=== PATIENT | male | born 1945 | race Caucasian/White ===

== ENCOUNTER 2017-07-08 13:20 | Inpatient (IN) ==
[2017-07-08] MEDS ORDERED: NON-FORMULARY MEDICATION 1 EACH EACH (Insulin Glargine [Lantus] 40 UNIT) SQ SCH (21:15)
[2017-07-08] MEDS ORDERED: Insulin DETEMIR 100 UNIT/ML per UNIT SQ ONE (21:45)
[2017-07-08] MEDS: *HR* HYDROcodone/Acet 5/325 mg TABLET PO PRN (22:26)
[2017-07-08] MEDS: Insulin LISPRO 300 UNITS/3 ML VIAL SQ SCH ×2 (22:30)
[2017-07-09 05:22] LABS: Basophils % 0.3 %; Eosinophils # 0.2 K/mcL (0.0-0.6); Eosinophils % 1.4 %; Hematocrit 34.5 % (37.5-50.1); Hemoglobin 11.9 g/dL (12.9-16.9); Immature Granulocytes % 0.5 % (0-4); Lymphocytes # 2.4 K/mcL (0.6-4.6); Lymphocytes % 20.9 %; Mean Corpuscular HGB Conc 34.5 g/dL (31.6-35.5); Mean Corpuscular Hemoglobin 29.7 pg (28.0-33.3); Mean Platelet Volume 10.2 fL (9.4-12.4); Monocytes # 1.1 K/mcL (0.0-1.3); Monocytes % 9.3 %; Platelet Count 292 K/mcL (140-400); Red Blood Count 4.01 M/mcL (4.19-5.50); Red Cell Distribution Width 13.1 % (11.5-14.5); Segmented Neutrophils % 67.6 %
[2017-07-09 05:33] LABS: INR 1.1; Prothrombin Time 11.4 Seconds (9.4-12.1)
[2017-07-09 05:41] LABS: Neutrophils # 7.8 K/mcL (1.6-8.9)
--- NOTE | 2017-07-09 07:43 | Internal Med History&Physical ---
Date of Encounter: 07/09/17 Time of Encounter: 07:40 Assessment and Plan (1) S/P BKA (below knee amputation) Current visit: Yes Status: Acute s/p BKA left side , Pain free at the present time On percocet as needed. adjust meds as needed . wound care and rehab . Qualifiers: Laterality: left Qualified Code(s): Z89.512 - Acquired absence of left leg below knee (2) Postoperative urinary retention Current visit: No Status: Chronic remove catheter , and trail it again . Most likely due to Narcotics side effects will follow add flomax Prostate is not enlarged noted fresh blood most likey due to ahrd stool will followup . add Colace (3) PAD (peripheral artery disease) Current visit: No Status: Chronic PVD due to [facility] DM , carotid pulse on left side decrease as compared to light side similarly decreased femoral on the left side . Will get carotid Doppler for assessment Continue present medication He is antiplatlets. (4) Diabetes Current visit: No Status: Chronic on insulin and oral medication Blood sugars AC and HS and adjust doses as needed HBA1c ordered . Conitnue to monitor Pt is DNR Qualifiers: Diabetes mellitus type: type 2 Diabetes mellitus complication status: with circulatory complication Diabetes mellitus complication detail: with peripheral angiopathy with gangrene Diabetes mellitus [facility] insulin use: with [facility] use Qualified Code(s): E11.52 - Type 2 diabetes mellitus with diabetic peripheral angiopathy with gangrene; Z79.4 - [facility] (current) use of insulin Internal Medicine - H&P: HPI Chief complaint: s/p amputation left BKA Admitted From: Hospital to Hospital Transfer History of present illness: Mr. Paz is a 72 year old male with significant hx of PVD , HTN DM developed ulcer foot on the right side which led to amputation of his left BKA . Surgery went well and he is here for rehab . At the present time he feels fine denies any complains of headache nausea dizziness weakness ,chest pain OB ,palpitation GI complains of pain . He developed urinary retention during this hospitalization . Attempt to remove his catheter failed and has indwelling at the present time Overall he feels fine Past Med Surg Social Fam HX - Past Medical History Medical history: diabetes, hypertension, peripheral artery disease Psychiatric history: no psych history - Past Surgical History Surgical History: cataract (right BKA ) - Social History Smoking Status: Never smoker Smokeless Tobacco Status: Yes Alcohol use: none Drug use: none Internal Medicine - H&P: Meds Aspirin [Lo-Dose Aspirin EC] 81 mg PO DAILY 07/03/17 [History] Insulin ASPART [Novolog] 10 unit SQ BID 07/03/17 [History] Insulin Glargine [Lantus] 40 unit SQ BID 07/03/17 [History] Lisinopril-HCTZ 20-12.5 [Prinzide 20-12.5] 1 each PO DAILY 07/03/17 [History] Loratadine [Allergy Relief] 10 mg PO DAILY 07/03/17 [History] Metoprolol Tartrate [Lopressor] 50 mg PO BID 07/03/17 [History] Pentoxifylline 400 mg PO BID 07/03/17 [History] Sitagliptin Phos/Metformin HCl [Janumet Xr 100-1,000 mg Tablet] 1 each PO DAILY 07/06/17 [History] HYDROcodone/Acet 5/325 mg [[place] 5-325 mg] 1 tab PO Q6HR PRN #20 tab 07/08/17 [ Rx] 3 Allergy/AdvReac Type Severity Reaction Status Date / Time amlodipine [From [facility]] AdvReac Nausea Verified 07/06/17 12:03 metformin AdvReac Nausea Verified 07/06/17 12:03 All Systems PM: A 10-system review of systems was performed and is negative for pertinent findings except as documented above in the HPI. - Constitutional Constitutional: no anorexia, no chills, no excessive sweating, no fatigue, no falls, no lethargy, no malaise, no weakness, no weight gain - EENT Eyes: no change in vision, no discharge, no loss of peripheral vision, no loss of vision, no photophobia Ears: no ear discharge, no ear pain Nose, mouth and throat: no dental pain, no dry mouth, no dysphagia, no mouth lesions, no mouth pain, no nasal discharge, no sinus pain, no sinus pressure - Cardiovascular Cardiovascular ROS IM: no chest pain, no claudication, no edema, no irregular heart rhythm, no lightheadedness, no orthopnea, no palpitations - Respiratory Respiratory: no cough, no dyspnea, no hemoptysis, no dyspnea on exertion, no pain on inspiration, no chest congestion, no excessive phlegm production, no change in phlegm color, no pain with cough - Gastrointestinal Gastrointestinal: no belching, no bloating, no constipation, no cramping, no diarrhea, no dyspepsia, no dysphagia, no hematemesis, no hematochezia - Genitourinary Genitourinary ROS male: difficulty urinating, nocturia, urinary frequency, urinary hesitancy, urinary urgency, no dysuria, no flank pain, no genital lesions, no genital pain, no penile discharge, no scrotal swelling - Musculoskeletal Musculoskeletal ROS IM: no back pain, no joint swelling, no limited range of motion, no muscle cramps - Integumentary Integumentary IM: no erythema, no rash, no skin ulcer, no jaundice - Neurological Neurological ROS: no abnormal hearing, no abnormal movements, no abnormal speech , no burning sensations, no confusion, no convulsions, no dizziness, no loss of vision, no memory loss, no restless legs, no tingling - Endocrine Endocrine IM: no cold intolerance, no deeping of the voice, no excessive sweating - Constitutional Vitals: Temp Pulse Resp BP Pulse Ox 98.1 F 51 14 137/67 94 07/09/17 07:00 07/09/17 07:00 07/09/17 07:00 07/09/17 07:00 07/09/17 07:00 General appearance: Present: A&O X 3, pleasant, no acute distress, answers questions appropriately. Absent: mild distress, obese - Head Head exam: Present: normal inspection - Eye Eye exam: Present: EOMI, normal appearance, PERRL. Absent: conjunctival injection, periorbital swelling, periorbital tenderness, scleral icterus, conjuntiva pink - ENT ENT exam: Present: normal oropharynx - Neck Neck exam general surgery: Present: full ROM, supple Additional comments: decrease carotid pulses both sides no bruits appreciated - Respiratory Respiratory exam: Present: CTAB. Absent: chest wall tenderness, decreased breath sounds, rhonchi, stridor, wheezes, tachypnea - Cardiovascular Cardiovascular exam: Present: RRR. Absent: gallop, irregular rhythm, JVD, systolic murmur, tachycardia - GI/Abdominal GI/Abdominal exam: Present: normal bowel sounds, soft. Absent: distended, guarding, mass, pulsatile mass, tenderness, no peritoneal signs - Rectal Rectal exam: Present: bloody stool, normal rectal tone. Absent: mass, prostate enlargement, prostate tenderness, tenderness Additional comments: fresh blood nted around anus , he had hard stool had been constipated , No hemorrhoids, prostate is non tender non enlarged . no mass felt - Extremities Exam Extremities exam: Present: full ROM. Absent: joint swelling Additional comments: BKA both sides ,pulses decreased on right side left side more then right side no bruits appreciated - Back Exam Back exam: Present: normal inspection. Absent: CVA tenderness (R), muscle spasm , rash noted, tenderness - Neurological Exam Neurological exam: Present: alert, CN II-XII intact, oriented X3, no focal deficits. Absent: facial droop, speech deficit - Psychiatric Psychiatric exam: Present: normal affect, normal mood - Skin Skin exam: Present: normal color. Absent: petechiae, rash, warm Internal Med - H&P Results - Labs CBC & Chem 7: 07/09/17 05:15 Labs: Short CBC 07/09/17 Range/Units 05:15 WBC 11.6 H (4.3-11.1) K/mcL Hgb 11.9 L (12.9-16.9) g/dL Hct 34.5 L (37.5-50.1) % Plt Count 292 (140-400) K/mcL Neutrophils # 7.8 (1.6-8.9) K/mcL
[2017-07-09] MEDS: Loratadine 10 MG TABLET PO SCH (08:21)
[2017-07-09] MEDS: Lisinopril-HCTZ 20-12.5mg TABLET PO SCH (08:21)
[2017-07-09] MEDS: Aspirin Enteric Coated 81 MG Tablet PO SCH (08:21)
[2017-07-09] MEDS: Insulin DETEMIR 100 UNIT/ML per UNIT SQ SCH ×2 (08:22→20:45)
[2017-07-09] MEDS: Insulin LISPRO 300 UNITS/3 ML VIAL SQ SCH ×6 (08:23→20:42)
[2017-07-09] MEDS: JANUMET PO SCH (08:24)
[2017-07-09] MEDS: *HR* HYDROcodone/Acet 5/325 mg TABLET PO PRN ×2 (08:28→20:14)
[2017-07-09 09:54] LABS: BUN/Creatinine Ratio 21 (6-26); Blood Urea Nitrogen 27 mg/dL (8-26); Calcium 9.5 mg/dL (8.6-10.8); Carbon Dioxide 30 mEq/L (19-29); Chloride 99 mEq/L (98-109); Glucose 139 mg/dL (70-99); Osmolality,Calculated 293 (280-300); Potassium 4.6 mEq/L (3.5-4.5); Sodium 138 mEq/L (136-145); eGFR For African Americans > 60 (> 60); eGFR For Non-African Americans 55 (> 60)
[2017-07-09 12:38] LABS: Hemoglobin A1C 8.3 %
[2017-07-10] MEDS: Loratadine 10 MG TABLET PO SCH (08:36)
[2017-07-10] MEDS: Aspirin Enteric Coated 81 MG Tablet PO SCH (08:36)
[2017-07-10] MEDS: Lisinopril-HCTZ 20-12.5mg TABLET PO SCH (08:36)
[2017-07-10] MEDS: JANUMET PO SCH (08:37)
[2017-07-10] MEDS: Insulin LISPRO 300 UNITS/3 ML VIAL SQ SCH ×6 (08:37→22:09)
[2017-07-10] MEDS: *HR* HYDROcodone/Acet 5/325 mg TABLET PO PRN ×2 (08:37→21:51)
[2017-07-10] MEDS: Insulin DETEMIR 100 UNIT/ML X5UNITS SQ SCH ×2 (08:43→22:10)
--- NOTE | 2017-07-10 11:50 | Internal Med Progress Note ---
Date of Encounter: 07/10/17 Time of Encounter: 11:48 - Assessment and plan (1) S/P BKA (below knee amputation) Current Visit: Yes Status: Acute Assessment and plan: stable no phantom pain incision stable Qualifiers: Laterality: left Qualified Code(s): Z89.512 - Acquired absence of left leg below knee (2) Postoperative urinary retention Current Visit: Yes Status: Acute Assessment and plan: seems it has improved today continue present medication . Creatinine slightly high will followup most likely post obstructive (3) PAD (peripheral artery disease) Current Visit: No Status: Chronic (4) Diabetes Current Visit: No Status: Chronic Assessment and plan: getting better continue present treatment Qualifiers: Diabetes mellitus type: type 2 Diabetes mellitus complication status: with circulatory complication Diabetes mellitus complication detail: with peripheral angiopathy with gangrene Diabetes mellitus long term acute care registered nurse insulin use: with senior living use Qualified Code(s): E11.52 - Type 2 diabetes mellitus with diabetic peripheral angiopathy with gangrene; 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 no side effects to meds - Constitutional Vitals: Temp Pulse Resp BP Pulse Ox 97.9 F 54 16 155/74 95 07/10/17 10:39 07/10/17 10:39 07/10/17 10:39 07/10/17 10:39 07/10/17 10:39 General appearance: Present: A&O X 3, pleasant, no acute distress, answers questions appropriately. Absent: mild distress, obese - Head Head exam: Present: atraumatic - Eye Eye exam: Present: EOMI, PERRL Pupils: Present: PERRL - ENT ENT exam: Present: mucous membranes moist - Neck Neck exam general surgery: Present: full ROM, supple - Respiratory Respiratory exam: Present: CTAB. Absent: decreased breath sounds, respiratory distress, stridor, wheezes, tachypnea - Cardiovascular Cardiovascular exam: Present: RRR. Absent: irregular rhythm, JVD Additional comments: no mummers - GI/Abdominal GI/Abdominal exam: Present: normal bowel sounds, soft. Absent: diminished bowel sounds, distended, guarding, rebound, rigid - Incison Incision: Present: clean and dry - Neurological Exam Neurological exam: Present: alert, CN II-XII intact, oriented X3, reflexes normal, no focal deficits. Absent: facial droop, speech deficit Internal Medicine: Result - Labs CBC & Chem 7: 07/09/17 05:15 07/09/17 08:18 - ABG Interpretation ABG results: PT/INR, D-dimer PT 11.4 Seconds (9.4-12.1) 07/09/17 05:15 Consult Discharge Plan - Plan Referrals: Crissy John CNP [Primary Care Provider] - Arsh Reynaga MD [Partnered Physician] - 08/19/17 9:45 am
--- NOTE | 2017-07-11 05:58 | Internal Med Progress Note ---
Date of Encounter: 07/11/17 Time of Encounter: 05:56 - Assessment and plan (1) S/P BKA (below knee amputation) Current Visit: Yes Status: Acute Assessment and plan: stable and getting rehab no new complains Qualifiers: Laterality: left Qualified Code(s): Z89.512 - Acquired absence of left leg below knee (2) Postoperative urinary retention Current Visit: Yes Status: Acute Assessment and plan: improved a lot and almost back to his normal (3) PAD (peripheral artery disease) Current Visit: No Status: Chronic Assessment and plan: No new change . carotid Doppler shows Bilateral less then 80 percent blockage see reprot for detailed report .Aggressive a management of risk factors . 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 Absent: mild distress, obese - Head Head exam: Present: atraumatic - Eye Eye exam: Present: EOMI, PERRL Pupils: Present: PERRL - Neck Neck exam general surgery: Present: supple. Absent: tenderness, nuchal rigidity - Respiratory Respiratory exam: Present: CTAB. Absent: chest wall tenderness, decreased breath sounds, respiratory distress, rhonchi, wheezes - Cardiovascular Cardiovascular exam: Present: RRR. Absent: irregular rhythm, JVD, systolic murmur - GI/Abdominal GI/Abdominal exam: Present: normal bowel sounds, soft. Absent: distended, guarding, rebound - Incison Incision: Present: clean and dry Internal Medicine: Result - Labs CBC & Chem 7: 07/09/17 05:15 07/09/17 08:18 - ABG Interpretation ABG results: PT/INR, D-dimer PT 11.4 Seconds (9.4-12.1) 07/09/17 05:15 Consult Discharge Plan - Plan Referrals: Crissy John CNP [Primary Care Provider] - Arsh Reynaga MD [Partnered Physician] - 08/19/17 9:45 am
[2017-07-11 06:03] LABS: BUN/Creatinine Ratio 26 (6-26); Blood Urea Nitrogen 33 mg/dL (8-26); Calcium 9.7 mg/dL (8.6-10.8); Carbon Dioxide 29 mEq/L (19-29); Chloride 101 mEq/L (98-109); Glucose 189 mg/dL (70-99); Osmolality,Calculated 298 (280-300); Potassium 4.6 mEq/L (3.5-4.5); Sodium 138 mEq/L (136-145); eGFR For African Americans > 60 (> 60); eGFR For Non-African Americans 55 (> 60)
[2017-07-11] MEDS: Insulin LISPRO 300 UNITS/3 ML VIAL SQ SCH ×6 (09:56→21:36)
[2017-07-11] MEDS: Insulin DETEMIR 100 UNIT/ML X5UNITS SQ SCH ×2 (09:57→21:34)
[2017-07-11] MEDS: Aspirin Enteric Coated 81 MG Tablet PO SCH (09:57)
[2017-07-11] MEDS: Loratadine 10 MG TABLET PO SCH (09:57)
[2017-07-11] MEDS: Lisinopril-HCTZ 20-12.5mg TABLET PO SCH (09:57)
[2017-07-11] MEDS: *HR* HYDROcodone/Acet 5/325 mg TABLET PO PRN ×2 (10:00→18:47)
[2017-07-11] MEDS: JANUMET PO SCH (10:06)
[2017-07-12] MEDS: Lisinopril-HCTZ 20-12.5mg TABLET PO SCH (08:31)
[2017-07-12] MEDS: Loratadine 10 MG TABLET PO SCH (08:31)
[2017-07-12] MEDS: Insulin DETEMIR 100 UNIT/ML X5UNITS SQ SCH ×2 (08:32→20:26)
[2017-07-12] MEDS: Insulin LISPRO 300 UNITS/3 ML VIAL SQ SCH ×6 (08:33→20:27)
[2017-07-12] MEDS: Aspirin Enteric Coated 81 MG Tablet PO SCH (08:33)
[2017-07-12] MEDS: JANUMET PO SCH (08:33)
--- NOTE | 2017-07-12 08:44 | Internal Med Progress Note ---
Date of Encounter: 07/12/17 Time of Encounter: 08:42 - Assessment and plan (1) S/P BKA (below knee amputation) Current Visit: Yes Status: Acute Assessment and plan: Stable incision is healing well > Pain is well controlled adjsut meds as needed Qualifiers: Laterality: left Qualified Code(s): Z89.512 - Acquired absence of left leg below knee (2) Postoperative urinary retention Current Visit: Yes Status: Acute Assessment and plan: He continues to ahve na issue with urinary retention . Use lidocaine gel for intermittent cath. On flomax , Add proscar , Urology is on boarad and is to see him soon . Adjsut opoids as they might be affecting his retention (3) PAD (peripheral artery disease) Current Visit: No Status: Chronic Assessment and plan: d/c trental On aspirin (4) Diabetes Current Visit: No Status: Chronic Assessment and plan: blood sugars continues to b high adjust meds as needed Qualifiers: Diabetes mellitus type: type 2 Diabetes mellitus complication status: with circulatory complication Diabetes mellitus complication detail: with peripheral angiopathy with gangrene Diabetes mellitus residential insulin use: with residential use Qualified Code(s): E11.52 - Type 2 diabetes mellitus with diabetic peripheral angiopathy with gangrene; Z79.4 - [facility] ([facility] use of insulin - Subjective Interval history: Some what upset about get catherizaiton done at night time Apparently he is holding large amount of urine post void around 1000 cc and more at occasions. No other complains Also his pentoxifyllin was to be stopped and was given for short period of time . No other complain His pain is well controlled - Constitutional Vitals: Temp Pulse Resp BP Pulse Ox 98.3 F 52 18 161/76 95 07/11/17 19:10 07/12/17 04:11 07/11/17 19:10 07/12/17 04:11 07/11/17 19:10 General appearance: Present: A&O X 3, pleasant, no acute distress, answers questions appropriately. Absent: mild distress, obese - Head Head exam: Present: atraumatic - Eye Eye exam: Present: EOMI, PERRL, conjuntiva pink. Absent: conjunctival injection , scleral icterus - Neck Neck exam general surgery: Present: supple. Absent: tenderness, nuchal rigidity - Respiratory Respiratory exam: Present: CTAB. Absent: respiratory distress, rhonchi, stridor , wheezes - Cardiovascular Cardiovascular exam: Present: RRR. Absent: irregular rhythm, JVD, systolic murmur - GI/Abdominal GI/Abdominal exam: Present: normal bowel sounds, soft. Absent: distended, guarding, rebound, rigid - Neurological Exam Neurological exam: Present: CN II-XII intact, oriented X3, no focal deficits, strengths equal and symetr throughout. Absent: facial droop, speech deficit Internal Medicine: Result - Labs CBC & Chem 7: 07/09/17 05:15 07/11/17 05:20 - ABG Interpretation ABG results: PT/INR, D-dimer PT 11.4 Seconds (9.4-12.1) 07/09/17 05:15 Consult Discharge Plan - Plan Referrals: Crissy John ARCHIVES SPECIALIST [Primary Care Provider] - Arsh Reynaga MD [Partnered Physician] - 08/19/17 9:45 am
[2017-07-12] MEDS ORDERED: Lidocaine Jelly 6ml 1 APPL/6 ML JEL.PF.APP TP PRN (11:01)
[2017-07-12] MEDS: Finasteride 5 MG TABLET PO SCH (11:58)
[2017-07-13] MEDS: traMADol 50 MG TABLET PO PRN ×3 (01:24→22:50)
[2017-07-13] MEDS: Insulin DETEMIR 100 UNIT/ML X5UNITS SQ SCH ×2 (09:35→22:46)
[2017-07-13] MEDS: Loratadine 10 MG TABLET PO SCH (09:35)
[2017-07-13] MEDS: Aspirin Enteric Coated 81 MG Tablet PO SCH (09:36)
[2017-07-13] MEDS: JANUMET PO SCH (09:36)
[2017-07-13] MEDS: Insulin LISPRO 300 UNITS/3 ML VIAL SQ SCH ×6 (09:36→22:49)
[2017-07-13] MEDS: Lisinopril-HCTZ 20-12.5mg TABLET PO SCH (09:36)
[2017-07-13] MEDS: Finasteride 5 MG TABLET PO SCH (09:36)
--- NOTE | 2017-07-13 10:02 | Internal Med Progress Note ---
Date of Encounter: 07/13/17 Time of Encounter: 10:00 - Assessment and plan (1) S/P BKA (below knee amputation) Current Visit: Yes Status: Acute Assessment and plan: stable wound healing well he chews tobacco advised not to use but decline not interested Qualifiers: Laterality: left Qualified Code(s): Z89.512 - Acquired absence of left leg below knee (2) Postoperative urinary retention Current Visit: Yes Status: Acute Assessment and plan: improving slowly (3) PAD (peripheral artery disease) Current Visit: No Status: Chronic Assessment and plan: same as before chews tobacco . advised against but not interested (4) Diabetes Current Visit: No Status: Chronic Assessment and plan: some what uncontrolled lately will adjust meds diet needs to be of better control seems like there is some non compliance Qualifiers: Diabetes mellitus type: type 2 Diabetes mellitus complication status: with circulatory complication Diabetes mellitus complication detail: with peripheral angiopathy with gangrene Diabetes mellitus superintendent terminal insulin use: with superintendent terminal use Qualified Code(s): E11.52 - Type 2 diabetes mellitus with diabetic peripheral angiopathy with gangrene; Z79.4 - termite technician (current) use of insulin - Subjective Interval history: S feels better today Blood sugars have been high somewhat lately .states that he has been passing urine much better and didnt require to have cath . no fever or chill - Constitutional Vitals: Temp Pulse Resp BP Pulse Ox 97.7 F 54 16 155/70 90 07/13/17 07:31 07/13/17 07:31 07/13/17 07:31 07/13/17 07:31 07/13/17 07:31 General appearance: Present: A&O X 3, pleasant, no acute distress, answers questions appropriately. Absent: mild distress, obese - Head Head exam: Present: atraumatic - Eye Eye exam: Present: EOMI, PERRL. Absent: conjunctival injection, scleral icterus Pupils: Present: PERRL - Neck Neck exam general surgery: Present: supple. Absent: tenderness, nuchal rigidity - Respiratory Respiratory exam: Present: CTAB. Absent: respiratory distress, rhonchi, wheezes , tachypnea - Cardiovascular Cardiovascular exam: Present: RRR, +S1. Absent: diastolic murmur, irregular rhythm, JVD, systolic murmur - GI/Abdominal GI/Abdominal exam: Present: normal bowel sounds, soft. Absent: guarding, rebound, rigid - Incison Incision: Present: clean and dry. Absent: draining, red, indurated - Neurological Exam Neurological exam: Present: CN II-XII intact, oriented X3, no focal deficits, strengths equal and symetr throughout. Absent: facial droop, speech deficit Internal Medicine: Result - Labs CBC & Chem 7: 07/09/17 05:15 07/11/17 05:20 - ABG Interpretation ABG results: PT/INR, D-dimer PT 11.4 Seconds (9.4-12.1) 07/09/17 05:15 Consult Discharge Plan - Plan Referrals: Crissy John CNP [Primary Care Provider] - Arsh Reynaga MD [Partnered Physician] - 08/19/17 9:45 am
--- NOTE | 2017-07-14 07:55 | Carotid Imaging Report ---
Carotid Duplex Patient Name:Miguel Paz Order Number:[id number] Procedure Date:07/10/2017 Date:1945ge:72 yrs Gender:Male Lt BP:155 / 74 mmHg Rt.BP:155 / 74 mmHgHeart Rate: Location:[facility] Room #: 109C Him Specialist:Layne Churchill RDCS Referring MD:Lynette Banks MD director of residence life:Crissy John NP Reading MD:Ray Damian MD Primary Indications:Severe PVD decrease pulses more left side Risk Factors Yes/No Hypertension Diabetes Impressions: The right internal carotid artery has a 60-79% stenosis. The left internal carotid artery has a 60-79% stenosis. Recommendations: Risk factor reduction. Further evaluation recommended if clinically indicated. Follow-up carotid duplex in 1 year. Findings Carotid Duplex: Right: There is nonstenotic plaque in the right mid common carotid artery. There is smooth heterogeneous plaque. There is nonstenotic plaque in the right bifurcation. There is calcified plaque. There is nonstenotic plaque in the right proximal internal carotid artery. There is calcified plaque. There is 60-79% stenosis in the right mid internal carotid artery. There is smooth homogeneous plaque. There is 40-59% stenosis in the right distal internal carotid artery. There is smooth homogeneous plaque. The right eca has turbulent flow with plaque. There is smooth heterogeneous plaque. Left: There is nonstenotic plaque in the left bifurcation. There is smooth heterogeneous plaque. There is 60-79% stenosis in the left proximal internal carotid artery. There is smooth homogeneous plaque. There is 40-59% stenosis in the left mid internal carotid artery. There is smooth heterogeneous plaque. There is nonstenotic plaque in the left distal internal carotid artery. Prior Study: No prior study available for comparison. Carotid Results Right PSV EDV Assessment Proximal CCA 109 14 Normal Mid CCA 85 16 Non Stenotic Plaque Distal CCA 90 17 Normal Bifurcation 90 18 Non Stenotic Plaque Proximal ICA 95 23 Non Stenotic Plaque Mid ICA 175 43 60-79% stenosis Distal ICA 146 38 40-59% stenosis ECA 141 15 Non Stenotic Plaque Vertebral Artery 85 21 Antegrade Flow Left PSV EDV Assessment Proximal CCA 92 16 Normal Mid CCA 145 24 Normal Distal CCA 101 22 Normal Bifurcation 102 23 Non Stenotic Plaque Proximal ICA 180 76 60-79% stenosis Mid ICA 134 35 40-59% stenosis Distal ICA 109 28 Non Stenotic Plaque ECA 70 0 Normal Vertebral Artery 39 15 Antegrade Flow Ratio's Right ICA/CCA Ratio: 2.06 ICA/CCA Values: 175/85 Left ICA/CCA Ratio: 1.24 ICA/CCA Values: 180/145 Updated by Ray Damian MD on 07/10/2017 5:01:04 PM electronically signed on 07/10/2017 5:01:19 PM with status of Final
[2017-07-14] MEDS: Insulin LISPRO 300 UNITS/3 ML VIAL SQ SCH ×6 (07:57→22:04)
[2017-07-14] MEDS: Insulin DETEMIR 100 UNIT/ML X5UNITS SQ SCH ×2 (09:28→22:07)
[2017-07-14] MEDS: Aspirin Enteric Coated 81 MG Tablet PO SCH (09:29)
[2017-07-14] MEDS: JANUMET PO SCH (09:29)
[2017-07-14] MEDS: Lisinopril-HCTZ 20-12.5mg TABLET PO SCH (09:29)
[2017-07-14] MEDS: Finasteride 5 MG TABLET PO SCH (09:29)
[2017-07-14] MEDS: Loratadine 10 MG TABLET PO SCH (09:29)
--- NOTE | 2017-07-14 14:00 | Internal Med Progress Note ---
Date of Encounter: 07/14/17 Time of Encounter: 14:00 - Assessment and plan (1) S/P BKA (below knee amputation) Current Visit: Yes Status: Acute Assessment and plan: Patient is improving his upper body strength. Also will see the urologist just more Qualifiers: Laterality: left Qualified Code(s): Z89.512 - Acquired absence of left leg below knee - Time Spent With Patient less than 15 minutes - Subjective Interval history: Working with the modalities of the therapy - Constitutional Vitals: Temp Pulse Resp BP Pulse Ox 98.3 F 50 16 162/65 96 07/14/17 08:02 07/14/17 08:02 07/14/17 08:02 07/14/17 08:02 07/14/17 08:02 General appearance: Present: A&O X 3, pleasant, no acute distress, answers questions appropriately. Absent: mild distress, obese - Head Head exam: Present: atraumatic, normocephalic - Neck Neck exam general surgery: Present: supple, trachea midline. Absent: lymphadenopathy - Respiratory Respiratory exam: Present: CTAB. Absent: accessory muscle use, rales, rhonchi, wheezes - Cardiovascular Cardiovascular exam: Present: RRR, +S1, +S2. Absent: diastolic murmur, gallop, rubs, systolic murmur Internal Medicine: Result - Labs CBC & Chem 7: 07/09/17 05:15 07/11/17 05:20 Labs: Need to follow the lab. - ABG Interpretation ABG results: PT/INR, D-dimer PT 11.4 Seconds (9.4-12.1) 07/09/17 05:15 Consult Discharge Plan - Plan Referrals: Crissy John CNP [Primary Care Provider] - Arsh Reynaga MD [Partnered Physician] - 08/19/17 9:45 am
[2017-07-14] MEDS: traMADol 50 MG TABLET PO PRN (22:06)
[2017-07-15 05:33] LABS: BUN/Creatinine Ratio 21 (6-26); Blood Urea Nitrogen 23 mg/dL (8-26); Calcium 9.3 mg/dL (8.6-10.8); Carbon Dioxide 28 mEq/L (19-29); Chloride 102 mEq/L (98-109); Glucose 95 mg/dL (70-99); Osmolality,Calculated 291 (280-300); Potassium 4.3 mEq/L (3.5-4.5); Sodium 139 mEq/L (136-145); eGFR For African Americans > 60 (> 60); eGFR For Non-African Americans > 60 (> 60)
[2017-07-15 05:44] LABS: Bilirubin,Urine Negative (Negative); Blood,Urine Trace-lysed (Negative); Clarity,Urine Slightly Cloudy (Clear); Glucose,Urine (UA) Normal (Normal); Ketones,Urine Negative (Negative); Leukocyte Esterase,Urine Moderate (Negative); Nitrite,Urine Positive (Negative); Protein,Urine Negative (Neg-Trace); Specific Gravity,Urine 1.015 (1.010-1.025); Urobilinogen,Urine Normal (Normal)
[2017-07-15 05:46] LABS: Color,Urine Yellow (Yellow)
[2017-07-15 05:47] LABS: Bacteria,Urine Moderate per hpf (None-Few); RBC,Urine 0-3 per hpf (0-3)
[2017-07-15] MEDS: traMADol 50 MG TABLET PO PRN ×2 (05:55→20:35)
[2017-07-15] MEDS: Finasteride 5 MG TABLET PO SCH (09:01)
[2017-07-15] MEDS: Lisinopril-HCTZ 20-12.5mg TABLET PO SCH (09:02)
[2017-07-15] MEDS: Loratadine 10 MG TABLET PO SCH (09:02)
[2017-07-15] MEDS: Aspirin Enteric Coated 81 MG Tablet PO SCH (09:02)
[2017-07-15] MEDS: Insulin DETEMIR 100 UNIT/ML X5UNITS SQ SCH ×2 (09:02→20:35)
[2017-07-15] MEDS: Insulin LISPRO 300 UNITS/3 ML VIAL SQ SCH ×6 (09:05→20:38)
[2017-07-15] MEDS: JANUMET PO SCH (09:06)
--- NOTE | 2017-07-15 11:17 | Internal Med Progress Note ---
Date of Encounter: 07/15/17 Time of Encounter: 11:15 - Assessment and plan (1) S/P BKA (below knee amputation) Current Visit: Yes Status: Acute Assessment and plan: Working with therapy for his amputation by being treated also for the UTI and unable to empty the bladder Qualifiers: Laterality: left Qualified Code(s): Z89.512 - Acquired absence of left leg below knee (2) UTI (urinary tract infection) Current Visit: Yes Status: Acute Assessment and plan: Just returned the UA will be with oral antibiotic treated Qualifiers: Urinary tract infection type: catheter-associated UTI Qualified Code(s): T83.510S - Infection and inflammatory reaction due to cystostomy catheter, sequela; N39.0 - Urinary tract infection, site not specified (3) Postoperative urinary retention Current Visit: Yes Status: Acute Assessment and plan: Patient is currently being seen by the urologist. - Time Spent With Patient less than 15 minutes - Subjective Interval history: Patient saw urologist this morning he placed a Burkett catheter totally relieved for a month and to follow up with him in the office. In addition the UA checked yesterday's positive so start him on some by mouth antibiotics - Constitutional Vitals: Temp Pulse Resp BP Pulse Ox 98.8 F 68 16 138/60 94 07/15/17 07:00 07/15/17 07:00 07/15/17 07:00 07/15/17 07:00 07/15/17 07:00 General appearance: Present: A&O X 3, pleasant, no acute distress, answers questions appropriately. Absent: mild distress, obese - Head Head exam: Present: normal inspection - Neck Neck exam general surgery: Present: supple, trachea midline. Absent: lymphadenopathy - Respiratory Respiratory exam: Present: CTAB. Absent: accessory muscle use, rales, rhonchi, wheezes - Cardiovascular Cardiovascular exam: Present: RRR, +S1, +S2. Absent: diastolic murmur, gallop, rubs, systolic murmur Internal Medicine: Result - Labs CBC & Chem 7: 07/09/17 05:15 07/15/17 05:05 Labs: BMP 07/15/17 05:05 Sodium 139 Potassium 4.3 Chloride 102 Carbon Dioxide 28 BUN 23 Creatinine 1.12 Glucose 95 Calcium 9.3 Urine 07/15/17 Range/Units 05:30 Urine Color Yellow (Yellow) Urine Clarity Slightly Cloudy A (Clear) Urine pH 5.0 (5.0-8.0) pH Units Ur Specific [place] 1.015 (1.010-1.025) Urine Protein Negative (Neg-Trace) mg/dL Urine Glucose (UA) Normal (Normal) mg/dL Urines positive. - ABG Interpretation ABG results: PT/INR, D-dimer PT 11.4 Seconds (9.4-12.1) 07/09/17 05:15 Consult Discharge Plan - Plan Referrals: Crissy John CNP [Primary Care Provider] - Arsh Reynaga MD [Partnered Physician] - 08/19/17 9:45 am
--- NOTE | 2017-07-15 12:59 | Physical Med Progress Note ---
Date of Encounter: 07/15/17 Time of Encounter: 12:51 Physical Medicine-PN: Subj Interval history: PMR PCC Note Patient is s/p left BKA. Patient has a history of previous right BKA. He is SBA/CGA for transfers. Patient is complaining of increased weakness. He has been diagnosed with a uti and is currently receiving bactrim. Patients poor endurance is a b arrier to discharge. We will continue to work on transfers to facilitate transfer to home. We will extend him to 07/22/17 to achieve these goals. - Constitutional Vitals: Vital Signs Temp Pulse Resp BP Pulse Ox 07/15/17 07:00 98.8 F 68 16 138/60 94 07/15/17 05:49 98.6 F 56 14 142/61 94 07/14/17 22:11 100.2 F H 71 14 95 07/14/17 19:32 99.9 F H 65 16 126/50 96 07/14/17 16:39 176/82 07/14/17 16:31 100.7 F H 67 18 191/72 94 Intake and Output 07/14/17 07/15/17 07/15/17 23:59 07:59 15:59 Intake Total 320 / 320 300 / 300 480 / 480 Output Total 1225 / 1225 400 / 400 Balance -905 / -905 -100 / -100 480 / 480 Intake: Oral 320 / 320 300 / 300 480 / 480 Output: Urine 400 / 400 400 / 400 Straight Cath 825 / 825 Other: Meal Dinner Percent of Meal Consumed 80% 75% Stool Size Small Stool Consistency formed Stool Characteristics Normal for Patient Stool Color Brown # Bowel Movements 1 Blood Glucose* 175 94 252 Physical Medicine-PN: Obj Data - Labs CBC & Chem 7: 07/09/17 05:15 07/15/17 05:05 Labs: Laboratory Results - last 24 hr 07/14/17 07/14/17 07/14/17 11:45 16:28 20:31 Sodium Potassium Chloride Carbon Dioxide BUN Creatinine Est GFR ( Amer) Est GFR (Non-Af Amer) BUN/Creatinine Ratio Glucose POC Glucose 270 H 248 H 175 H Calculated Osmolality Calcium Urine Color Urine Clarity Urine pH Ur Specific [place] Urine Protein Urine Glucose (UA) Urine Ketones Urine Blood Urine Nitrite Urine Bilirubin Urine Urobilinogen Ur Leukocyte Esterase Urine Microscopic RBC Urine Microscopic WBC Urine Bacteria Ur Culture Indicated? 07/15/17 07/15/17 07/15/17 05:05 05:30 05:44 Sodium 139 Potassium 4.3 Chloride 102 Carbon Dioxide 28 BUN 23 Creatinine 1.12 Est GFR ( Amer) > 60 Est GFR (Non-Af Amer) > 60 BUN/Creatinine Ratio 21 Glucose 95 POC Glucose 97 H Calculated Osmolality 291 Calcium 9.3 Urine Color Yellow Urine Clarity Slightly Cloudy A Urine pH 5.0 Ur Specific [place] 1.015 Urine Protein Negative Urine Glucose (UA) Normal Urine Ketones Negative Urine Blood Trace-lysed H Urine Nitrite Positive A Urine Bilirubin Negative Urine Urobilinogen Normal Ur Leukocyte Esterase Moderate H Urine Microscopic RBC 0-3 Urine Microscopic WBC 5-15 H Urine Bacteria Moderate H Ur Culture Indicated? YES A - ABG Interpretation ABG results: PT/INR, D-dimer PT 11.4 Seconds (9.4-12.1) 07/09/17 05:15 Consult Discharge Plan - Plan Referrals: Crissy John CNP [Primary Care Provider] - Arsh Reynaga MD [Partnered Physician] - 08/19/17 9:45 am
[2017-07-15] MEDS: Sulfamethoxazole/Trimeth DS 1 EACH TABLET PO SCH (20:34)
[2017-07-15] MEDS ORDERED: Sulfamethoxazole/Trimeth DS 1 EACH TABLET PO SCH (21:00)
[2017-07-16] MEDS: Insulin DETEMIR 100 UNIT/ML X5UNITS SQ SCH ×2 (07:40→21:54)
[2017-07-16] MEDS: traMADol 50 MG TABLET PO PRN ×2 (07:41→18:33)
[2017-07-16] MEDS: Insulin LISPRO 300 UNITS/3 ML VIAL SQ SCH ×5 (07:41→21:54)
[2017-07-16] MEDS: Aspirin Enteric Coated 81 MG Tablet PO SCH (07:42)
[2017-07-16] MEDS: Finasteride 5 MG TABLET PO SCH (07:42)
[2017-07-16] MEDS: Lisinopril-HCTZ 20-12.5mg TABLET PO SCH (07:42)
[2017-07-16] MEDS: Loratadine 10 MG TABLET PO SCH (07:42)
[2017-07-16] MEDS: JANUMET PO SCH (07:43)
[2017-07-16] MEDS: Sulfamethoxazole/Trimeth DS 1 EACH TABLET PO SCH ×2 (07:47→21:53)
--- NOTE | 2017-07-16 16:36 | Internal Med Progress Note ---
Date of Encounter: 07/16/17 Time of Encounter: 15:00 - Assessment and plan (1) S/P BKA (below knee amputation) Current Visit: Yes Status: Acute Assessment and plan: Patient's here for second amputation below the knee. As I mentioned is working with a therapist he needs to increase his endurance and strength. Qualifiers: Laterality: left Qualified Code(s): Z89.512 - Acquired absence of left leg below knee (2) UTI (urinary tract infection) Current Visit: Yes Status: Acute Assessment and plan: I UTI multiple catheters and now has an indwelling Burkett saw urologist Qualifiers: Urinary tract infection type: catheter-associated UTI Qualified Code(s): T83.510S - Infection and inflammatory reaction due to cystostomy catheter, sequela; N39.0 - Urinary tract infection, site not specified (3) Postoperative urinary retention Current Visit: Yes Status: Acute Assessment and plan: See above - Time Spent With Patient less than 15 minutes - Subjective Interval history: Mr. Garrett is having low blood sugars in the a.m. He does not check his blood sugars at home is a well-developed fingersticks. I was discussing this with the family ligaments see what they can do. Body. The at bedtime insulin and see if this helps. - Constitutional Vitals: Temp Pulse Resp BP Pulse Ox 98.8 F 64 18 139/64 92 07/16/17 07:00 07/16/17 07:00 07/16/17 07:00 07/16/17 07:00 07/16/17 07:00 General appearance: Present: A&O X 3, pleasant, no acute distress, answers questions appropriately. Absent: mild distress, obese - Head Head exam: Present: atraumatic, normal inspection, normocephalic - Neck Neck exam general surgery: Present: supple, trachea midline. Absent: lymphadenopathy - Respiratory Respiratory exam: Present: CTAB. Absent: accessory muscle use, rales, rhonchi, wheezes - Cardiovascular Cardiovascular exam: Present: RRR, +S1, +S2. Absent: diastolic murmur, gallop, rubs, systolic murmur Internal Medicine: Result - Labs CBC & Chem 7: 07/09/17 05:15 07/15/17 05:05 Labs: The lab looks pretty good - ABG Interpretation ABG results: PT/INR, D-dimer PT 11.4 Seconds (9.4-12.1) 07/09/17 05:15 Consult Discharge Plan - Plan Referrals: Crissy John CNP [Primary Care Provider] - Arsh Reynaga MD [Partnered Physician] - 08/19/17 9:45 am
[2017-07-16] MEDS: Acetaminophen 325 MG TABLET PO PRN (21:50)
[2017-07-17] MEDS: traMADol 50 MG TABLET PO PRN (06:08)
[2017-07-17] MEDS: Acetaminophen 325 MG TABLET PO PRN ×3 (06:08→18:53)
[2017-07-17] MEDS: Insulin LISPRO 300 UNITS/3 ML VIAL SQ SCH ×4 (07:31→17:25)
[2017-07-17] MEDS: Insulin DETEMIR 100 UNIT/ML X5UNITS SQ SCH ×2 (07:32→21:55)
[2017-07-17] MEDS: Sulfamethoxazole/Trimeth DS 1 EACH TABLET PO SCH ×2 (10:21→21:55)
[2017-07-17] MEDS: JANUMET PO SCH (10:22)
[2017-07-17] MEDS: Loratadine 10 MG TABLET PO SCH (10:22)
[2017-07-17] MEDS: Lisinopril-HCTZ 20-12.5mg TABLET PO SCH (10:22)
[2017-07-17] MEDS: Aspirin Enteric Coated 81 MG Tablet PO SCH (10:22)
[2017-07-17] MEDS: Finasteride 5 MG TABLET PO SCH (10:22)
--- NOTE | 2017-07-17 10:53 | Internal Med Progress Note ---
Date of Encounter: 07/17/17 Time of Encounter: 10:40 - Assessment and plan (1) S/P BKA (below knee amputation) Current Visit: Yes Status: Acute Assessment and plan: Sincerely working with therapy to increase strength and endurance. I have had discussions with the family about follow-up. Is going to get home health end up some family assistance but right now he is not going to be ambulatory Qualifiers: Laterality: left Qualified Code(s): Z89.512 - Acquired absence of left leg below knee (2) UTI (urinary tract infection) Current Visit: Yes Status: Acute Assessment and plan: Urologist and placed a Burkett right now this is taken care of the problem plus UTI was treated Qualifiers: Urinary tract infection type: catheter-associated UTI Qualified Code(s): T83.510S - Infection and inflammatory reaction due to cystostomy catheter, sequela; N39.0 - Urinary tract infection, site not specified (3) Postoperative urinary retention Current Visit: Yes Status: Acute - Time Spent With Patient less than 15 minutes - Subjective Interval history: Patient's blood sugars still low this morning. So I had stopped the at bedtime insulin. But he does not take a snack at at bedtime. We Will Lower the Evening Dose in Addition Order Him a Snack at at Bedtime. - Constitutional Vitals: Temp Pulse Resp BP Pulse Ox 99.0 F 62 18 142/63 95 07/17/17 07:13 07/17/17 07:13 07/17/17 07:13 07/17/17 07:13 07/17/17 07:13 General appearance: Present: A&O X 3, pleasant, no acute distress, answers questions appropriately. Absent: mild distress, obese - Head Head exam: Present: atraumatic, normocephalic - Neck Neck exam general surgery: Present: supple, trachea midline. Absent: lymphadenopathy - Cardiovascular Cardiovascular exam: Present: RRR, +S1, +S2. Absent: diastolic murmur, gallop, rubs, systolic murmur Internal Medicine: Result - Labs CBC & Chem 7: 07/09/17 05:15 07/15/17 05:05 Labs: However low blood sugar no acute change - ABG Interpretation ABG results: PT/INR, D-dimer PT 11.4 Seconds (9.4-12.1) 07/09/17 05:15 Consult Discharge Plan - Plan Referrals: Crissy John CNP [Primary Care Provider] - Arsh Reynaga MD [Partnered Physician] - 08/19/17 9:45 am
[2017-07-18] MEDS: Insulin LISPRO 300 UNITS/3 ML VIAL SQ SCH ×3 (07:44→16:45)
[2017-07-18] MEDS: Lisinopril-HCTZ 20-12.5mg TABLET PO SCH (08:44)
[2017-07-18] MEDS: Loratadine 10 MG TABLET PO SCH (08:44)
[2017-07-18] MEDS: Finasteride 5 MG TABLET PO SCH (08:44)
[2017-07-18] MEDS: Aspirin Enteric Coated 81 MG Tablet PO SCH (08:44)
[2017-07-18] MEDS: Sulfamethoxazole/Trimeth DS 1 EACH TABLET PO SCH ×2 (08:44→21:12)
[2017-07-18] MEDS: JANUMET PO SCH (08:45)
[2017-07-18] MEDS: Acetaminophen 325 MG TABLET PO PRN ×2 (08:45→16:44)
[2017-07-18] MEDS: Insulin DETEMIR 100 UNIT/ML X5UNITS SQ SCH ×2 (08:45→21:11)
--- NOTE | 2017-07-18 17:37 | Internal Med Progress Note ---
Date of Encounter: 07/18/17 Time of Encounter: 15:25 - Assessment and plan (1) S/P BKA (below knee amputation) Current Visit: Yes Status: Acute Assessment and plan: Continue to work with therapist(s). Will require HH at discharge (not ready yet) . Qualifiers: Laterality: left Qualified Code(s): Z89.512 - Acquired absence of left leg below knee (2) UTI (urinary tract infection) Current Visit: Yes Status: Acute Assessment and plan: - Enterobactor aerogenes isolated from urine culture obtained on 07/14 sensitive to Bactrim. - Burkett placed by urology on 07/15 for urinary retention. - continue current treatment (Bactrim and Burkett). Qualifiers: Urinary tract infection type: catheter-associated UTI Qualified Code(s): T83.510S - Infection and inflammatory reaction due to cystostomy catheter, sequela; N39.0 - Urinary tract infection, site not specified - Time Spent With Patient less than 15 minutes - Subjective Interval history: - Doing well, no particular concern. - Eating and drinking well. - Working with therapists. - Burkett intact, no leaking around. - No problem with BM. - Constitutional Vitals: Temp Pulse Resp BP Pulse Ox 98.5 F 57 16 142/68 95 07/18/17 07:00 07/18/17 07:00 07/18/17 07:00 07/18/17 07:00 07/18/17 07:00 General appearance: Present: A&O X 3, pleasant, no acute distress, answers questions appropriately. Absent: mild distress, obese Exam: Gen: A&Ox3, NAD. HEENT: NCAT. Neck: No palpable lymphadenopathy or thyromegaly. CV: RRR, S1S2. No murmur. Capillary refill < 2 seconds. Pulm: CTAB. No crackles, wheezing, or rhonchi. Abd: (+)BS. NDNT. No guarding, rigidity, or rebound. Neuro: Non-focal. Skin: No rash. Ext: Dressing over left BKA c/d/i. RLE prosthesis noted. Internal Medicine: Result - Labs CBC & Chem 7: 07/09/17 05:15 07/15/17 05:05 Labs: Reviewed - ABG Interpretation ABG results: PT/INR, D-dimer PT 11.4 Seconds (9.4-12.1) 07/09/17 05:15 Consult Discharge Plan - Plan Referrals: Crissy John CNP [Primary Care Provider] - Arsh Reynaga MD [Partnered Physician] - 08/19/17 9:45 am
[2017-07-19] MEDS: Insulin LISPRO 300 UNITS/3 ML VIAL SQ SCH ×3 (08:07→17:59)
[2017-07-19] MEDS: Loratadine 10 MG TABLET PO SCH (09:11)
[2017-07-19] MEDS: Aspirin Enteric Coated 81 MG Tablet PO SCH (09:11)
[2017-07-19] MEDS: Insulin DETEMIR 100 UNIT/ML X5UNITS SQ SCH ×2 (09:11→20:48)
[2017-07-19] MEDS: Finasteride 5 MG TABLET PO SCH (09:11)
[2017-07-19] MEDS: JANUMET PO SCH (09:12)
[2017-07-19] MEDS: Sulfamethoxazole/Trimeth DS 1 EACH TABLET PO SCH ×2 (09:12→20:48)
[2017-07-19] MEDS: Lisinopril-HCTZ 20-12.5mg TABLET PO SCH (09:12)
--- NOTE | 2017-07-19 11:03 | Internal Med Progress Note ---
Date of Encounter: 07/19/17 Time of Encounter: 10:20 - Assessment and plan (1) S/P BKA (below knee amputation) Current Visit: Yes Status: Acute Assessment and plan: Continue to work with therapist(s). Will require HH at discharge (not ready yet) . Qualifiers: Laterality: left Qualified Code(s): Z89.512 - Acquired absence of left leg below knee (2) UTI (urinary tract infection) Current Visit: Yes Status: Acute Assessment and plan: - Enterobactor aerogenes isolated from urine culture obtained on 07/14 sensitive to Bactrim. - Burkett placed by urology on 07/15 for urinary retention. - continue current treatment (Bactrim and Burkett). Qualifiers: Urinary tract infection type: catheter-associated UTI Qualified Code(s): T83.511D - Infection and inflammatory reaction due to indwelling urethral catheter, subsequent encounter; N39.0 - Urinary tract infection, site not specified (3) Diabetes Current Visit: No Status: Chronic Assessment and plan: Hypoglyemic this morning. Will decrease detemir to 36 units BID. Qualifiers: Diabetes mellitus type: type 2 Diabetes mellitus complication status: with circulatory complication Diabetes mellitus complication detail: with peripheral angiopathy with gangrene Diabetes mellitus long term care social worker insulin use: with halfway use Qualified Code(s): E11.52 - Type 2 diabetes mellitus with diabetic peripheral angiopathy with gangrene; Z79.4 - middle or intermediate school principal (current) use of insulin - Subjective Interval history: - Was hypoglcyemic this morning, otherwise doing well and working with therapists. - Constitutional Vitals: Temp Pulse Resp BP Pulse Ox 97.6 F 48 16 126/50 99 07/19/17 08:58 07/19/17 08:58 07/19/17 08:58 07/19/17 08:58 07/19/17 08:58 General appearance: Present: A&O X 3, pleasant, no acute distress, answers questions appropriately. Absent: mild distress, obese Exam: Gen: A&Ox3, NAD. HEENT: NCAT. Neck: No palpable lymphadenopathy or thyromegaly. CV: RRR, S1S2. No murmur. Capillary refill < 2 seconds. Pulm: CTAB. No crackles, wheezing, or rhonchi. Abd: (+)BS. NDNT. No guarding, rigidity, or rebound. Neuro: Non-focal. Skin: No rash. Ext: Dressing over left BKA c/d/i. RLE prosthesis noted. Internal Medicine: Result - Labs CBC & Chem 7: 07/09/17 05:15 07/15/17 05:05 Labs: Reviewed - ABG Interpretation ABG results: PT/INR, D-dimer PT 11.4 Seconds (9.4-12.1) 07/09/17 05:15 Consult Discharge Plan - Plan Referrals: Crissy John CNP [Primary Care Provider] - rAsh Reynaga MD [Partnered Physician] - 08/19/17 9:45 am
[2017-07-19] MEDS: Acetaminophen 325 MG TABLET PO PRN (18:09)
[2017-07-20 05:16] LABS: Basophils % 0.4 %; Eosinophils # 0.2 K/mcL (0.0-0.6); Eosinophils % 2.3 %; Hematocrit 31.7 % (37.5-50.1); Hemoglobin 10.7 g/dL (12.9-16.9); Immature Granulocytes % 0.4 % (0-4); Lymphocytes # 2.1 K/mcL (0.6-4.6); Lymphocytes % 20.7 %; Mean Corpuscular HGB Conc 33.8 g/dL (31.6-35.5); Mean Corpuscular Hemoglobin 29.5 pg (28.0-33.3); Mean Corpuscular Volume 87.3 fL (83.0-100.0); Monocytes # 0.8 K/mcL (0.0-1.3); Monocytes % 7.9 %; Neutrophils # 6.7 K/mcL (1.6-8.9); Platelet Count 298 K/mcL (140-400); Red Blood Count 3.63 M/mcL (4.19-5.50); Red Cell Distribution Width 13.5 % (11.5-14.5); Segmented Neutrophils % 68.3 %
[2017-07-20 05:27] LABS: BUN/Creatinine Ratio 14 (6-26); Blood Urea Nitrogen 19 mg/dL (8-26); Calcium 9.2 mg/dL (8.6-10.8); Carbon Dioxide 28 mEq/L (19-29); Chloride 103 mEq/L (98-109); Glucose 156 mg/dL (70-99); Osmolality,Calculated 291 (280-300); Potassium 4.8 mEq/L (3.5-4.5); Sodium 138 mEq/L (136-145); eGFR For African Americans > 60 (> 60); eGFR For Non-African Americans 52 (> 60)
[2017-07-20] MEDS: Sulfamethoxazole/Trimeth DS 1 EACH TABLET PO SCH ×2 (07:51→21:45)
[2017-07-20] MEDS: Finasteride 5 MG TABLET PO SCH (07:51)
[2017-07-20] MEDS: Aspirin Enteric Coated 81 MG Tablet PO SCH (07:51)
[2017-07-20] MEDS: Lisinopril-HCTZ 20-12.5mg TABLET PO SCH (07:51)
[2017-07-20] MEDS: Loratadine 10 MG TABLET PO SCH (07:51)
[2017-07-20] MEDS: JANUMET PO SCH (07:53)
[2017-07-20] MEDS: Insulin LISPRO 300 UNITS/3 ML VIAL SQ SCH ×2 (08:07→12:04)
[2017-07-20] MEDS: Insulin DETEMIR 100 UNIT/ML X5UNITS SQ SCH ×2 (08:23→21:45)
--- NOTE | 2017-07-20 13:15 | Internal Med Progress Note ---
Date of Encounter: 07/20/17 Time of Encounter: 13:12 - Assessment and plan (1) S/P BKA (below knee amputation) Current Visit: Yes Status: Acute Assessment and plan: Patient continues to work with therapists increasing strength and endurance Qualifiers: Laterality: left Qualified Code(s): Z89.512 - Acquired absence of left leg below knee (2) UTI (urinary tract infection) Current Visit: Yes Status: Acute Assessment and plan: Should be resolved. He does have an indwelling Burkett and has follow-up with urology Qualifiers: Urinary tract infection type: catheter-associated UTI Qualified Code(s): T83.511D - Infection and inflammatory reaction due to indwelling urethral catheter, subsequent encounter; N39.0 - Urinary tract infection, site not specified (3) Postoperative urinary retention Current Visit: Yes Status: Acute Assessment and plan: That is why he has the indwelling Burkett and follow up with urologist. This should resolve - Time Spent With Patient less than 15 minutes - Subjective Interval history: 3 meals doing fine noted on a home health visit for tomorrow and he will be discharged on the . I am going to slowly decrease that evening insulin one more time it is coming off but not quite where we want - Constitutional Vitals: Temp Pulse Resp BP Pulse Ox 98.3 F 50 15 161/67 98 07/20/17 07:31 07/20/17 07:31 07/20/17 07:31 07/20/17 07:31 07/20/17 07:31 General appearance: Present: A&O X 3, pleasant, no acute distress, answers questions appropriately. Absent: mild distress, obese - Head Head exam: Present: atraumatic, normal inspection, normocephalic - Neck Neck exam general surgery: Present: supple, trachea midline. Absent: lymphadenopathy - Respiratory Respiratory exam: Present: CTAB. Absent: accessory muscle use, rales, rhonchi, wheezes - Cardiovascular Cardiovascular exam: Present: RRR, +S1, +S2. Absent: diastolic murmur, gallop, rubs, systolic murmur Internal Medicine: Result - Labs CBC & Chem 7: 07/20/17 05:10 07/20/17 05:10 Labs: Short CBC 07/20/17 Range/Units 05:10 WBC 9.9 (4.3-11.1) K/mcL Hgb 10.7 L (12.9-16.9) g/dL Hct 31.7 L (37.5-50.1) % Plt Count 298 (140-400) K/mcL Neutrophils # 6.7 (1.6-8.9) K/mcL BMP 07/20/17 05:10 Sodium 138 Potassium 4.8 H Chloride 103 Carbon Dioxide 28 BUN 19 Creatinine 1.36 H Glucose 156 H Calcium 9.2 The labs stable - ABG Interpretation ABG results: PT/INR, D-dimer PT 11.4 Seconds (9.4-12.1) 07/09/17 05:15 Consult Discharge Plan - Plan Referrals: Crissy John CNP [Primary Care Provider] - Arsh Reynaga MD [Partnered Physician] - 08/19/17 9:45 am
[2017-07-20] MEDS: Acetaminophen 325 MG TABLET PO PRN ×2 (13:57→21:44)
[2017-07-21] MEDS: Lisinopril-HCTZ 20-12.5mg TABLET PO SCH (08:30)
[2017-07-21] MEDS: Insulin DETEMIR 100 UNIT/ML X5UNITS SQ SCH ×2 (08:31→21:30)
[2017-07-21] MEDS: Loratadine 10 MG TABLET PO SCH (08:31)
[2017-07-21] MEDS: Aspirin Enteric Coated 81 MG Tablet PO SCH (08:31)
[2017-07-21] MEDS: Finasteride 5 MG TABLET PO SCH (08:31)
[2017-07-21] MEDS: Sulfamethoxazole/Trimeth DS 1 EACH TABLET PO SCH ×2 (08:31→21:30)
[2017-07-21] MEDS: JANUMET PO SCH (08:35)
--- NOTE | 2017-07-21 10:34 | Internal Med Progress Note ---
Date of Encounter: 07/21/17 Time of Encounter: 10:31 - Assessment and plan (1) S/P BKA (below knee amputation) Current Visit: Yes Status: Acute Assessment and plan: Patient is increasing strength and endurance. Anahy before he will get a prosthesis. Qualifiers: Laterality: left Qualified Code(s): Z89.512 - Acquired absence of left leg below knee (2) UTI (urinary tract infection) Current Visit: Yes Status: Acute Assessment and plan: She will be resolved Qualifiers: Urinary tract infection type: catheter-associated UTI Qualified Code(s): T83.511D - Infection and inflammatory reaction due to indwelling urethral catheter, subsequent encounter; N39.0 - Urinary tract infection, site not specified (3) Postoperative urinary retention Current Visit: Yes Status: Acute Assessment and plan: Reason for current indwelling Patel - Time Spent With Patient less than 15 minutes - Subjective Interval history: Doing well will be discharged tomorrow. - Constitutional Vitals: Temp Pulse Resp BP Pulse Ox 98.7 F 58 16 146/55 97 07/21/17 07:01 07/21/17 09:11 07/21/17 07:01 07/21/17 07:01 07/21/17 07:01 General appearance: Present: A&O X 3, pleasant, no acute distress, answers questions appropriately. Absent: mild distress, obese - Head Head exam: Present: atraumatic, normal inspection, normocephalic - Neck Neck exam general surgery: Present: supple, trachea midline. Absent: lymphadenopathy - Respiratory Respiratory exam: Present: CTAB. Absent: accessory muscle use, rales, rhonchi, wheezes - Cardiovascular Cardiovascular exam: Present: RRR, +S1, +S2. Absent: diastolic murmur, gallop, rubs, systolic murmur Internal Medicine: Result - Labs CBC & Chem 7: 07/20/17 05:10 07/20/17 05:10 Labs: Labs good - ABG Interpretation ABG results: PT/INR, D-dimer PT 11.4 Seconds (9.4-12.1) 07/09/17 05:15 Consult Discharge Plan - Plan Referrals: Crissy John, [employer] [Primary Care Provider] - Kirby Lewis MD [Partnered Physician] - 08/12/17 8:45 am (follow for patel evaluation) Arsh Reynaga MD [Partnered Physician] - 08/19/17 9:45 am
[2017-07-21] MEDS: Acetaminophen 325 MG TABLET PO PRN (21:30)
[2017-07-22 08:59] VITALS: BP 152/68
[2017-07-22] MEDS: Aspirin Enteric Coated 81 MG Tablet PO SCH (08:59)
[2017-07-22] MEDS: Loratadine 10 MG TABLET PO SCH (08:59)
[2017-07-22] MEDS: Sulfamethoxazole/Trimeth DS 1 EACH TABLET PO SCH (08:59)
[2017-07-22] MEDS: Finasteride 5 MG TABLET PO SCH (08:59)
[2017-07-22] MEDS: Lisinopril-HCTZ 20-12.5mg TABLET PO SCH (09:00)
[2017-07-22] MEDS: Insulin DETEMIR 100 UNIT/ML X5UNITS SQ SCH (09:00)
[2017-07-22] MEDS: JANUMET PO SCH (09:03)
--- NOTE | 2017-07-22 10:15 | Discharge Summary ---
Date of Encounter: 07/22/17 Time of Encounter: 10:13 - Discharge Diagnosis (1) S/P BKA (below knee amputation) Priority: Primary Status: Acute Comments: Patient is been here for increasing strength and endurance. He be discharged home today with home health (2) UTI (urinary tract infection) Priority: Secondary Status: Acute Comments: As follow-up of urology (3) Postoperative urinary retention Priority: Secondary Status: Acute Comments: See above - Discharge Medications Home Medications: Aspirin [Lo-Dose Aspirin EC] 81 mg PO DAILY 07/03/17 [History] Insulin ASPART [Novolog] 10 unit SQ BID 07/03/17 [History] Insulin Glargine [Lantus] 40 unit SQ BID 07/03/17 [History] Lisinopril-HCTZ 20-12.5 [Prinzide 20-12.5] 1 each PO DAILY 07/03/17 [History] Loratadine [Allergy Relief] 10 mg PO DAILY 07/03/17 [History] Metoprolol Tartrate [Lopressor] 50 mg PO BID 07/03/17 [History] Pentoxifylline 400 mg PO BID 07/03/17 [History] Sitagliptin Phos/Metformin HCl [Janumet Xr 100-1,000 mg Tablet] 1 each PO DAILY 07/06/17 [History] HYDROcodone/Acet 5/325 mg [[place] 5-325 mg] 1 tab PO Q6HR PRN #20 tab 07/08/17 [ Rx] Allergies/Adverse Reactions: 3 Allergy/AdvReac Type Severity Reaction Status Date / Time amlodipine [From [facility]] AdvReac Nausea Verified 07/06/17 12:03 metformin AdvReac Nausea Verified 07/06/17 12:03 Date of admission: 07/08/17 19:05 Primary care physician: Crissy John CNP Consults: 07/08/17 19:48 Consult to Occupational Therapy [CONS] Routine Comment: Evaluate, develop and implement POC Reason for Consult: rehab Consult to Physical Therapy [CONS] Routine Comment: Evaluate, develop and implement POC Reason for Consult: rehab Consult to Recreational Therapy [CONS] Routine Comment: Evaluate, develop and implement POC Consult to Borematic Machine Operator [CONS] Routine Reason for SW Consult: discharge planning Consult to Speech Therapy [CONS] Routine Comment: Evaluate, develop and implement POC Reason for Consult: speech impairment Call Completed: Yes Discharging clinician: Henrry Rust Anticipated date of discharge: 07/22/17 - Patient Status Disposition: Home Health Service Condition: Good Functional capacity at discharge: wheelchair bound Overall status at discharge: patient is not back to baseline - Discharge Instructions Instructions: Below the Knee Amputation (DC), Patel Catheter Placement and Care (DC), How to Check Your Blood Sugar (DC) Follow Up With: Crissy John CNP [Primary Care Provider] - Kirby Lewis MD [Partnered Physician] - 08/12/17 8:45 am (follow for patel evaluation) Arsh Reynaga MD [Partnered Physician] - 08/19/17 9:45 am - Diet and Activity Activity: as per physical therapy Diet: diabetic diet Interval History: Agent has vascular disease underwent amputation which is now bilateral. Her strength and endurance Hospital course: Mr. Paz is a 72 year old male - Time Spent with Patient Total time spent providing and/or coordinating discharge services: Less than 30 minutes - Constitutional Vitals: Temp Pulse Resp BP Pulse Ox 97.7 F 62 15 152/68 95 07/22/17 08:58 07/22/17 08:58 07/22/17 08:58 07/22/17 08:58 07/22/17 08:58 General appearance: Present: A&O X 3, pleasant, no acute distress, answers questions appropriately. Absent: mild distress, obese - Head Head exam: Present: atraumatic, normal inspection, normocephalic - Neck Neck exam general surgery: Present: supple, trachea midline. Absent: lymphadenopathy - Respiratory Respiratory exam: Present: CTAB. Absent: accessory muscle use, rales, rhonchi, wheezes - Cardiovascular Cardiovascular exam: Present: RRR, +S1, +S2. Absent: diastolic murmur, gallop, rubs, systolic murmur
--- NOTE | 2017-07-22 10:18 | Physician Discharge Referral ---
Home Health/Hosp Referral Info Transfer to: Home Health Provider in Charge Post Discharge: PCP - Diagnosis (1) S/P BKA (below knee amputation) Priority: Primary Status: Acute (2) UTI (urinary tract infection) Priority: Secondary Status: Acute (3) Postoperative urinary retention Priority: Secondary Status: Acute - Respiratory Orders Smoking Cessation: Smoking cessation has been advised. For more information, call the [place] [employer] Quit Line at 0-889-EVLY-NOW. - Diet/Nutrition Diet/Nutrition Orders: No Concentrated Sweets - Services Needed Following services are medically necessary services: Nursing, Physical Therapy - Transfer Medications Home Medications: Aspirin [Lo-Dose Aspirin EC] 81 mg PO DAILY 07/03/17 [History] Insulin ASPART [Novolog] 10 unit SQ BID 07/03/17 [History] Insulin Glargine [Lantus] 40 unit SQ BID 07/03/17 [History] Lisinopril-HCTZ 20-12.5 [Prinzide 20-12.5] 1 each PO DAILY 07/03/17 [History] Loratadine [Allergy Relief] 10 mg PO DAILY 07/03/17 [History] Metoprolol Tartrate [Lopressor] 50 mg PO BID 07/03/17 [History] Pentoxifylline 400 mg PO BID 07/03/17 [History] Sitagliptin Phos/Metformin HCl [Janumet Xr 100-1,000 mg Tablet] 1 each PO DAILY 07/06/17 [History] HYDROcodone/Acet 5/325 mg [Galva 5-325 mg] 1 tab PO Q6HR PRN #20 tab 07/08/17 [ Rx] Allergies/Adverse Reactions: 3 Allergy/AdvReac Type Severity Reaction Status Date / Time amlodipine [From [facility]] AdvReac Nausea Verified 07/06/17 12:03 metformin AdvReac Nausea Verified 07/06/17 12:03 Certification: Further, I certify that my clinical findings support that this patient is homebound (i.e. absences from home require considerable and taxing effort and are for medical reasons or anabaptism services or infrequently or short duration when for other reasons) because: Homebound Reason: Patient requires assistance of a person or device to safely leave home Attestation: My signature below is to certify that this patient is under my care and that I, or nurse practitioner, or a physician's front end assistant working with me, has a face-to -face encounter with this patient.
== END 2017-07-22 12:00 | disposition home health service (06) | DRG 560 ==
LOC: INPGRE 19:05
PROVIDERS: ADMIT Internal Medicine; ATTEND Internal Medicine